=== PATIENT | female | born 1995 | race Caucasian/White ===

== ENCOUNTER 2017-10-24 11:09 | Emergency (ER) | payer SELFPAY ==
[2017-10-24 11:31] VITALS: BP 125/83
[2017-10-24] MEDS ORDERED: Acetaminophen TAB* 325 MG PO ONE (12:26)
--- NOTE | 2017-10-24 12:29 | UC ---
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 All the dogs are vaccinated. She reports it occurred while she was trying to break a fight between two dogs. No other serious injury or fall. - History of Current Complaint Chief Complaint: UCBiteInjury Stated Complaint: DOG BITE Time Seen by Provider: 10/24/17 12:07 Hx Last Menstrual Period: 10/22/17 Pain Intensity: 10 Onset/Duration: Sudden Onset Type of Bite: Pet Has Animal Been Immunized?: Yes Character: Puncture Aggravating Factor(s): Other - movement Hx of Bite: Provoked by: - trying to break a fight between two dogs Animal Available for Observation: Yes - Allergies/Home Medications Allergies/Adverse Reactions: Allergies Allergy/AdvReac Type Severity Reaction Status Date / Time cetirizine [From [facility]] Allergy Hives Verified 10/24/17 11:33 PMH/Surg Hx/FS Hx/Imm Hx Previously Healthy: Yes - Surgical History Surgical History: Yes Surgery Procedure, Year, and Place: adnedois and ear tubes - Family History Known Family History: Positive: None - Social History Alcohol Use: Rare Substance Use Type: None Smoking Status (MU): Never Smoked Tobacco Review of Systems Constitutional: Negative Skin: Negative Eyes: Negative ENT: Negative Respiratory: Negative Cardiovascular: Negative Gastrointestinal: Negative Genitourinary: Negative Motor: Negative Neurovascular: Negative Musculoskeletal: Negative - as per HPI Neurological: Negative Psychological: Negative All Other Systems Reviewed And Are Negative: Yes Physical Exam Triage Information Reviewed: Yes Appearance: Well-Appearing, No Pain Distress Vital Signs: Initial Vital Signs Temp 37.2 C 10/24/17 11:27 Pulse 74 10/24/17 11:27 Resp 16 10/24/17 11:27 BP 125/83 10/24/17 11:27 Pulse Ox 100 10/24/17 11:27 Neck exam: Normal Respiratory Exam: Normal Cardiovascular Exam: Normal Abdominal Exam: Normal Musculoskeletal: Positive: Other: - left arm with two deep puncture wounds on volar surface SILT in A/U/M, AIN/PIN/U intact, no scaphoid tenderness, intact Radial pulse Psychological Exam: Normal Bite Injury Course/Dx - Differential Dx/Diagnosis Differential Diagnosis/HQI/PQRI: Crush Injury, Laceration, Puncture Provider Diagnoses: Dog bite. Discussed with patient about the risk of closure vs. secondary intention. Will give abx prophylaxis Discharge - Sign-Out/Discharge Documenting (check all that apply): Discharge/Admit/Transfer - Discharge Plan Condition: Good Disposition: HOME Prescriptions: Amoxicillin/Clavulanate TAB* [Augmentin TAB 875*] 875 mg PO BID 10 Days #20 tab Naproxen TAB* [Naprosyn 250 mg TAB*] 250 mg PO Q8H PRN #30 tab PRN Reason: Pain Patient Education Materials: Animal Bite (ED) Forms: *Work Release Referrals: Non Staff,Doctor [Primary Care Provider] - - Billing Disposition and Condition Condition: GOOD Disposition: Home
== END 2017-10-24 12:57 | disposition home or self-care (01) ==
LOC: UCEAST 11:09
DX: S51.832A Puncture wound without foreign body of left forearm, initial encounter (principal); W54.0XXA Bitten by dog, initial encounter; Y93.89 Activity, other specified; Y92.9 Unspecified place or not applicable; Z88.8 Allergy status to other drugs, medicaments and biological substances
CPT/HCPCS: 99213; A9270-GY; G0463

== ENCOUNTER 2017-10-30 11:30 | Emergency (ER) | payer SELFPAY ==
[2017-10-30 11:53] VITALS: BP 121/66
--- NOTE | 2017-10-30 13:02 | UC ---
Hand/Wrist HPI - HPI Summary HPI Summary: Patient is a 22-year-old female who is one-week status post a dog bite to her left forearm. This injury occurred at work. She was bitten by a pit bull. She states she sustained deep puncture wounds on both the ulnar and radial aspect of the left forearm. After the bite her left arm was numb. He states that the bites looked markedly improved now. Her concern is that the bites are still very tender to touch. Also concerned because she is having persistent numbness and tingling of the radial side of her forearm and hand. She Augmentin. He denies any fever. Her tetanus is up-to-date. - History Of Current Complaint Chief Complaint: UCBiteInjury Stated Complaint: RECHECK DOG BITE Time Seen by Provider: 10/30/17 12:40 Hx Obtained From: Patient Hx Last Menstrual Period: October 19, 2017 Onset/Duration: Sudden Onset Severity Initially: Severe Severity Currently: Mild Pain Intensity: 4 Pain Scale Used: 0-10 Numeric Character Of Pain: Aching Aggravating Factor(s): Movement, Lifting Associated Signs And Symptoms: Positive: Swelling - slight, Numbness/Tingling - radial aspect jose j left forearm and hand. Negative: Redness Related History: Dominant Hand Right - Allergies/Home Medications Allergies/Adverse Reactions: Allergies Allergy/AdvReac Type Severity Reaction Status Date / Time cetirizine [From [facility]] Allergy Hives Verified 10/24/17 11:33 PMH/Surg Hx/FS Hx/Imm Hx Previously Healthy: Yes - Surgical History Surgical History: Yes Surgery Procedure, Year, and Place: adnedois and ear tubes - Family History Known Family History: Positive: Hypertension - Social History Alcohol Use: Rare Substance Use Type: None Smoking Status (MU): Never Smoked Tobacco Review of Systems Constitutional: Negative Skin: Negative Eyes: Negative ENT: Negative Respiratory: Negative Cardiovascular: Negative Gastrointestinal: Negative Genitourinary: Negative Motor: Negative Neurovascular: Negative Musculoskeletal: Myalgia Neurological: Paresthesia, Numbness Psychological: Negative Is Patient Immunocompromised?: No All Other Systems Reviewed And Are Negative: Yes Physical Exam Triage Information Reviewed: Yes Appearance: Well-Appearing, No Pain Distress, Well-Nourished Vital Signs: Initial Vital Signs Temp 98.0 F 10/30/17 11:48 Pulse 63 10/30/17 11:48 Resp 16 10/30/17 11:48 BP 121/66 10/30/17 11:48 Pulse Ox 100 10/30/17 11:48 Vital Signs Reviewed: Yes Eyes: Positive: Conjunctiva Clear ENT: Positive: Hearing grossly normal. Negative: Nasal congestion, Nasal drainage, Trismus, Muffled voice, Hoarse voice, Dental tenderness Neck: Positive: Supple, Nontender Respiratory: Positive: Chest non-tender, Lungs clear, Normal breath sounds Cardiovascular: Positive: RRR, No Murmur Musculoskeletal: Positive: Strength Intact, ROM Intact, No Edema, Other: - no left wrist/forearm or dorsal hand edema Neurological: Positive: Alert, Other: - subjective numbness and tingling in medial n distiburion on hand Psychological Exam: Normal Skin Exam: Normal Hand/Wrist Course/Dx - Differential Dx/Diagnosis Provider Diagnoses: dog bite /crush injury left forearm. median nerve paresthesias Discharge - Sign-Out/Discharge Documenting (check all that apply): Discharge/Admit/Transfer - Discharge Plan Condition: Stable Disposition: HOME Patient Education Materials: Crush Injury (ED) Referrals: Omar Ang MD [Medical Doctor] - As Soon As Possible Non Staff,Doctor [Primary Care Provider] - Additional Instructions: splint continue augmentin you still have some numbness in which may be due to a bruised nerve I suggest follow up with a specialist - Billing Disposition and Condition Condition: STABLE Disposition: Home
--- NOTE | 2017-10-30 13:09 | RAD ---
INDICATION: Dog bite COMPARISON: None TECHNIQUE: AP and lateral views were obtained. FINDINGS: There is no acute fracture. The soft tissues are intact. There is no foreign body. IMPRESSION: NO FRACTURE OR FOREIGN BODY
== END 2017-10-30 13:31 | disposition home or self-care (01) ==
LOC: UCEAST 11:30
DX: S51.852A Open bite of left forearm, initial encounter (principal); S57.82XA Crushing injury of left forearm, initial encounter; G56.82 Other specified mononeuropathies of left upper limb; Z88.8 Allergy status to other drugs, medicaments and biological substances; W54.0XXA Bitten by dog, initial encounter; Y92.9 Unspecified place or not applicable
CPT/HCPCS: 99211; G0463